=== PATIENT | male | born 1960 | race Caucasian/White ===

== ENCOUNTER 2025-09-20 05:39 | Day surgery (SDC) | payer BC ==
[2025-09-16 13:53] VITALS: BMI 43.1
[2025-09-20] MEDS ORDERED: Lidocaine 1% w/Epinephrine 1:200K 30 ML VIAL ONE (06:20)
[2025-09-20] MEDS ORDERED: PROPOFOL 20 ML ONE ×2 (06:38→07:25)
[2025-09-20] MEDS ORDERED: Lidocaine 1% PF 5 ML VIAL ONE (06:39)
[2025-09-20] MEDS ORDERED: HYDROcodone/Acetaminophen 5/325 mg Tablet ONE (08:24)
== END 2025-09-20 09:00 | disposition home or self-care (01) ==
LOC: CSHSDC 05:39
PROVIDERS: ATTEND Otolaryngology Plastic Surgery within the Head & Neck
PROC: 0JB50ZX Excision of Left Neck Subcutaneous Tissue and Fascia, Open Approach, Diagnostic (ICD-10-PCS; principal; 2025-09-20)
DX: C49.0 Malignant neoplasm of connective and soft tissue of head, face and neck (principal); I10 Essential (primary) hypertension; F32.A Depression, unspecified; F41.9 Anxiety disorder, unspecified; Z96.649 Presence of unspecified artificial hip joint; Z79.899 Other long term (current) drug therapy
CPT/HCPCS: 82365; 88184; 88304; 88342; 93005; 93010; J1100; J2704